=== PATIENT | male | born 1980 | race Caucasian/White ===

== ENCOUNTER 2018-02-14 17:49 | Emergency (ER) | END 2018-02-14 22:02 | disposition home or self-care (01) ==

== ENCOUNTER 2018-08-28 11:59 | Emergency (ER) | payer OTHER ==
[~2018-08-28] VITALS: Ht 167.6 cm; Wt 76.1 kg
[~2018-08-28 11:59] MED LIST: ASPI-817 PO; ATOR20TA38 PO; BEN50 PO; CEPH-443 PO; CLON0.2T5 PO; HYDR100T25 PO; ISOS30TA67 PO; LISI10TA2 PO; METO-407 PO; NIFE90TA11 PO; NIFEdipine (XL) 90 MG TAB PO SCH; POLY17PO6 PO; SEVE800T7 PO; ZOF8 PO
[2018-08-28 12:02] VITALS: Ht 167.6 cm; Wt 76.1 kg
[2018-08-28] MEDS ORDERED: ONDANSETRON 4 MG INJ IV STA ×2 (12:12→14:09)
[2018-08-28] MEDS ORDERED: morphine 4 MG/ML VIAL IV STA (12:12)
[2018-08-28] MEDS ORDERED: ASPIRIN 81 MG TAB PO ONE (12:30)
[2018-08-28] MEDS ORDERED: CALCIUM GLUCONATE 10% 1 GM in DEXTROSE 5% 100 ML IVPB ONE (12:30)
[2018-08-28] MEDS ORDERED: hydrALAzine 20 MG INJ IV ONE ×2 (12:30→14:30)
--- NOTE | 2018-08-28 12:31 | ERD ---
ER Documentation Chief Complaint Chief Complaint Chest pain xam radiates to back & bilat arms non-provoked; AP N/V/D X3days HPI This is a 38-year-old gentleman with a history of end-stage renal disease on dialysis, Wednesday and Wednesday with last dialysis Wednesday, 2 days ago. The patient presents with multiple complaints including chest pain, epigastric abdominal discomfort, elevated blood pressure and a report of high potassium yesterday. Patient denies any fevers chills or cough. The pain is pressure- like, 6 out of 10, nonradiating to his back. ROS All systems reviewed and are negative except as per history of present illness. Medications Home Meds Reported Medications Vitamin A (Vitamin A) Unknown Strength Capsule, 1 CAP PO DAILY, CAP 08/28/18 Sevelamer Carbonate* (Renvela*) 800 Mg Tablet, 0.8 GM PO WITH MEALS, TAB 08/28/18 Nifedipine* (Nifedipine ER*) 90 Mg Tablet.er, 90 MG PO TID, TAB 08/28/18 Lisinopril* (Lisinopril*) 10 Mg Tablet, 10 MG PO DAILY, #30 TAB 08/28/18 Isosorbide Mononitrate* (Isosorbide Mononitrate*) 30 Mg Tab.er.24h, 30 MG PO DAILY, TAB 08/28/18 Hydralazine Hcl* (Hydralazine Hcl*) 10 Mg Tablet, 10 MG PO Q8H, #60 TAB 08/28/18 Diphenhydramine Hcl* (Benadryl*) 50 Mg Cap, 50 MG PO BID PRN for ITCHING, CAP 08/28/18 Clonidine Hcl* (Clonidine Hcl*) 0.2 Mg Tablet, 0.2 MG PO Q8, TAB 08/28/18 Atorvastatin Calcium* (Atorvastatin Calcium*) 20 Mg Tablet, 20 MG PO QHS, #30 TAB 08/28/18 Aspirin* (Aspirin* EC) 81 Mg Tablet.dr, 81 MG PO DAILY, TAB 08/28/18 Discontinued Reported Medications Isosorbide Mononitrate* (Isosorbide Mononitrate*) 30 Mg Tab.er.24h, 30 MG PO DAILY, TAB 02/14/18 Hydralazine Hcl* (Hydralazine Hcl*) 100 Mg Tablet, 100 MG PO Q8, #90 TAB 02/14/18 Clonidine Hcl* (Clonidine Hcl*) 0.2 Mg Tablet, 0.2 MG PO Q8, TAB 02/14/18 Atorvastatin Calcium* (Atorvastatin Calcium*) 20 Mg Tablet, 20 MG PO QHS, #30 TAB 02/14/18 Sevelamer Carbonate* (Renvela*) 800 Mg Tablet, 0.8 GM PO WITH MEALS, TAB 02/14/18 Diphenhydramine Hcl* (Benadryl*) 50 Mg Cap, 50 MG PO ONCE PRN for ITCHING, CAP 02/14/18 Aspirin* (Aspirin* EC) 81 Mg Tablet.dr, 81 MG PO DAILY, TAB 02/14/18 Nifedipine* (Nifedipine ER*) 90 Mg Tablet.er, 90 MG PO DAILY, TAB 02/14/18 Metoprolol Tartrate* (Lopressor*) 100 Mg Tablet, 100 MG PO BID, #60 TAB 02/14/18 Lisinopril* (Lisinopril*) 10 Mg Tablet, 10 MG PO DAILY, #30 TAB 02/14/18 Discontinued Scripts Ondansetron Hcl* (Zofran*) 8 Mg Tab, 8 MG PO Q6H PRN for NAUSEA AND OR VOMITING, #20 TAB Prov:YASMIN WATERS MD 02/14/18 Polyethylene Glycol* (Miralax*) 17 Gm Powd.pack, 17 GM PO DAILY, #7 Prov:YASMIN WATERS MD 02/14/18 Cephalexin* (Keflex*) 500 Mg Capsule, 500 MG PO BID for 10 Days, CAP Prov:YASMIN WATERS MD 02/14/18 Allergies Allergies: Coded Allergies: Penicillins (Unverified Allergy, Unknown, 08/28/18) iodine (Unverified Allergy, Unknown, 08/28/18) PMhx/Soc History of Surgery: Yes (Right arm AV shunt, right chest permacath) Anesthesia Reaction: No Hx Neurological Disorder: No Hx Respiratory Disorders: No Hx Cardiac Disorders: Yes (HTN) Hx Psychiatric Problems: No Hx Miscellaneous Medical Probl: Yes (ESRD, Dialysis pt. ) Hx Alcohol Use: No Hx Substance Use: No (Denies) Hx Tobacco Use: No FmHx Family History: diabetes Physical Exam Vitals Vital Signs Date Temp Pulse Resp B/P (MAP) Pulse Ox O2 O2 Flow FiO2 Time Delivery Rate 08/28/18 88 18 202/126 98 Room Air 13:54 (151) 08/28/18 84 18 190/114 96 Room Air 13:03 (139) 08/28/18 97.8 83 20 211/122 98 12:02 (151) Physical Exam General: Well developed, well nourished, no acute distress Head: Normocephalic, atraumatic. Eyes: Pupils equally reactive, EOM intact ENT: Moist mucous membranes Neck: Supple, no lymphadenopathy Respiratory: Lungs clear bilaterally, no distress Cardiovascular: RRR, no murmurs, rubs, or gallops Abdominal: Soft, mild generalized abdominal tenderness without localization, negative Almeida sign, no tenderness to McBurney's point : Deferred MSK: No edema, no unilateral swelling, 5/5 strength Neurologic: Alert and oriented, moving all extremities, normal speech, no focal weakness, no cerebellar signs Skin: No rash, right chest tunneled Vas-Cath in good position Psych: Normal mood Result Diagram: 08/28/18 1235 08/28/18 1235 Results 24 hrs Laboratory Tests Test 08/28/18 12:35 White Blood Count 5.3 10^3/ul Red Blood Count 3.12 10^6/ul Hemoglobin 9.3 g/dl Hematocrit 28.8 % Mean Corpuscular Volume 92.3 fl Mean Corpuscular Hemoglobin 29.8 pg Mean Corpuscular Hemoglobin Concent 32.3 g/dl Red Cell Distribution Width 14.2 % Platelet Count 153 10^3/UL Mean Platelet Volume 9.2 fl Immature Granulocytes % 0.400 % Neutrophils % 80.6 % Lymphocytes % 6.3 % Monocytes % 9.5 % Eosinophils % 2.8 % Basophils % 0.4 % Nucleated Red Blood Cells % 0.0 /100WBC Immature Granulocytes # 0.020 10^3/ul Neutrophils # 4.3 10^3/ul Lymphocytes # 0.3 10^3/ul Monocytes # 0.5 10^3/ul Eosinophils # 0.2 10^3/ul Basophils # 0.0 10^3/ul Nucleated Red Blood Cells # 0.0 10^3/ul Prothrombin Time 11.6 Sec Prothrombin Time Ratio 0.9 INR International Normalized Ratio 0.84 Activated Partial Thromboplast Time 34.7 Sec Sodium Level 133 mmol/L Potassium Level 5.9 mmol/L Chloride Level 96 mmol/L Carbon Dioxide Level 22 mmol/L Anion Gap 15 Blood Urea Nitrogen 54 mg/dl Creatinine 13.85 mg/dl Est Glomerular Filtrat Rate mL/min 4 mL/min Glucose Level 130 mg/dl Calcium Level 10.6 mg/dl Total Bilirubin 0.0 mg/dl Direct Bilirubin 0.00 mg/dl Indirect Bilirubin 0.0 mg/dl Aspartate Amino Transf (AST/SGOT) 28 IU/L Alanine Aminotransferase (ALT/SGPT) 20 IU/L Alkaline Phosphatase 119 IU/L Troponin I < 0.012 ng/ml Total Protein 7.4 g/dl Albumin 4.5 g/dl Globulin 2.90 g/dl Albumin/Globulin Ratio 1.55 Lipase 160 U/L Current Medications Medications Dose Sig/Julia Start Time Status Last (Trade) Ordered Route PRN Stop Time Admin Dose Reason Admin Morphine 4 mg ONCE STAT 08/28/18 DC 08/28/18 Sulfate IV 12:12 12:46 (morphine) 08/28/18 12:15 Ondansetron 4 mg ONCE STAT 08/28/18 DC 08/28/18 HCl (Zofran IV 12:12 12:45 Inj) 08/28/18 12:15 Aspirin 162 mg ONCE ONCE 08/28/18 DC 08/28/18 (Aspirin) PO 12:30 12:44 08/28/18 12:31 Calcium 110 ml @ ONCE ONCE 08/28/18 DC 08/28/18 Gluconate 1 110 mls/hr IVPB 12:30 12:49 gm/Dextrose 08/28/18 13:29 Hydralazine 20 mg ONCE ONCE 08/28/18 DC 08/28/18 HCl IV 12:30 12:49 (Apresoline) 08/28/18 12:31 1 mg ONCE STAT 08/28/18 DC 08/28/18 Hydromorphone IV 13:41 13:53 HCl 08/28/18 13:42 (Dilaudid) Sodium 30 gm ONCE STAT 08/28/18 DC Polystyrene PO 13:53 Sulfonate 08/28/18 14:02 (Kayexalate) Sodium 50 ml ONCE STAT 08/28/18 DC Bicarbonate IV 13:53 (Na Bicarb 08/28/18 14:02 8.4% Syg) Ondansetron 4 mg ONCE STAT 08/28/18 DC HCl (Zofran IV 14:09 Inj) 08/28/18 14:10 Ondansetron 4 mg ER BRIDGE 08/28/18 HCl (Zofran PRN IV 14:30 Inj) NAUSEA/VOMITI 08/29/18 14:29 NG 650 mg ER BRIDGE 08/28/18 Acetaminophen PRN PO 14:30 (Tylenol .MILD PAIN 08/29/18 14:29 Tab) 1-3 OR TEMP 25 mg ONCE ONCE 08/28/18 Diphenhydrami IV 14:30 ne HCl 08/28/18 14:31 (Benadryl) Procedures/MDM EKG, MONITORS, & DIAGNOSTIC IMAGING: EKG: I reviewed and interpreted a 12-lead EKG. Rhythm: Normal sinus rhythm ST Changes: No contiguous ST segment elevations T waves: No contiguous T wave inversions, hyperacute or peaked T waves noted Impression: No evidence of acute cardiac ischemia Repeat EKG: EKG: I reviewed and interpreted a 12-lead EKG. Rhythm: Normal sinus rhythm ST Changes: No contiguous ST segment elevations T waves: No contiguous T wave inversions, hyperacute t waves vs peaked t waves Impression: No evidence of acute cardiac ischemia Chest x-ray: I reviewed and interpreted a 1 view of the chest Mediastinum: No enlargement Cardiac silhouette: No cardiomegaly Airspace: Clear lung webber bilaterally without evidence of pneumothorax Bones: No evidence of fracture CT abdomen and pelvis: No acute process per radiologist read LAB INTERPRETATION: * Negative troponin, elevated potassium MEDICAL DECISION MAKING: The patient's history, physical exam and clinical presentation is concerning for possible cardiogenic etiology and acute coronary syndrome. Additionally the patient's EKG is concerning for hyperkalemia. Empiric calcium will be provided. Patient does have elevated blood pressure with chest pain. The patient's chest pain is not migratory and I do not believe consistent with dissection. CT is not indicated at this time. Patient will benefit from blood pressure and pain control. Based on the patient's clinical exam and history and risk factors, I have a much lower clinical concern for pulmonary embolism, acute aortic dissection, pneumothorax, pneumonia, cardiac tamponade HEART Score: 4 or greater MACE Rate: 16.6% Shared Decision Making: We had a conversation regarding risk stratification, MACE rate, and the risks, benefits, alternatives of disposition planning options. Disposition planning: Patient requires admission ER COURSE: * Pain meds, aspirin, hydralazine provided. Empiric calcium provided. * Bicarb and Kayexalate provided. * Patient had some vomiting related to narcotic pain medication. * Patient is hemodynamically stable and benefits from hospitalization, dialysis * Patient's blood pressure was somewhat difficult to control and required several doses of hydralazine. Patient is extremely anxious which may be contributing. Anxiolysis provided. The patient requires dialysis for definitive hypertensive care CONSULTATION: admitting team will contact nephrology for dialysis DISPOSITION PLAN: Accepting care team and consultations: I discussed the current laboratory data, diagnostic imaging and emergency care provided. Admitting team: Dr. Gómez Admitting team indication: Insurance directed Departure Diagnosis: Primary Impression: Chest pain Chest pain type: unspecified Qualified Codes: R07.9 - Chest pain, unspecified Additional Impressions: Hyperkalemia End stage renal disease on dialysis Nausea and vomiting Vomiting type: unspecified Vomiting Intractability: non-intractable Qualified Codes: R11.2 - Nausea with vomiting, unspecified Hypertensive urgency Condition: Stable DAVI RENE MD Aug 28, 2018 12:31
[2018-08-28] MEDS ORDERED: ASPI-817 PO (12:41)
[2018-08-28] MEDS ORDERED: BEN50 PO (12:42)
[2018-08-28] MEDS ORDERED: ATOR20TA38 PO (12:42)
[2018-08-28] MEDS ORDERED: CLON0.2T5 PO (12:42)
[2018-08-28] MEDS ORDERED: HYDR-3670 PO (12:43)
[2018-08-28] MEDS ORDERED: ISOS30TA67 PO (12:43)
[2018-08-28] MEDS ORDERED: LISI10TA2 PO (12:44)
[2018-08-28] MEDS ORDERED: NIFE90TA11 PO (12:44)
[2018-08-28] MEDS ORDERED: SEVE800T7 PO (12:45)
[2018-08-28] MEDS ORDERED: VITA80005 PO (12:46)
[2018-08-28] MEDS ORDERED: HYDROmorphONE 0.5 MG/0.5 ML SYG IV STA (13:41)
[2018-08-28] MEDS ORDERED: NA BICARBONATE 8.4% 50 ML SYG IV STA (13:53)
[2018-08-28] MEDS ORDERED: NA POLYST SULFON 15 GM/60 ML BTL PO STA (13:53)
[2018-08-28] MEDS ORDERED: DIPHENHYDRAMINE 50 MG INJ IV ONE ×2 (14:30→16:00)
[2018-08-28] MEDS ORDERED: ACETAMINOPHEN 325 MG TAB PO PRN ×2 (14:30→19:30)
[2018-08-28] MEDS ORDERED: LORAZEPAM 2 MG INJ IV ONE ×2 (14:30→16:00)
[2018-08-28] MEDS ORDERED: ONDANSETRON 4 MG INJ IV PRN ×2 (14:30→19:30)
[2018-08-28] MEDS ORDERED: KETOROLAC 15 MG INJ IV STA (17:19)
[2018-08-28 17:39] VITALS: BP 196/121; PULSE 106; RESP 18
[2018-08-28] MEDS ORDERED: LABETALOL HCL 20MG INJ IV ONE ×2 (18:00→19:30)
--- NOTE | 2018-08-28 19:28 | HP ---
Date/Time of Note Date/Time of Note DATE: 08/28/18 TIME: 19:20 Assessment/Plan VTE Prophylaxis SCD applied (from Nsg): Yes Pharmacological prophylaxis: NA/contraindicated Pharm contraindication: renal impairment Lines/Catheters IV Catheter Type (from Nrsg): Saline Lock Assessment/Plan Hospital Course 1. Chest and abdominal pain Etiology unclear, CT abdomen shows no significant findings and chest x-ray shows pulmonary congestion CT chest with IV contrast to rule out dissection as patient reports significant pain and does have severely elevated blood pressure Questionable opiate seeking behavior also noted Pain control 2. Hypertensive emergency Labetalol IV as needed Continue home p.o. meds 3. 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 Castillo has been consulted 4. Anemia secondary to end-stage renal disease Monitor Prophylaxis: SCDs Result Diagram: 08/28/18 1235 08/28/18 1235 Results 24hrs Laboratory Tests Test 08/28/18 12:35 White Blood Count 5.3 Red Blood Count 3.12 L Hemoglobin 9.3 L Hematocrit 28.8 L Mean Corpuscular Volume 92.3 Mean Corpuscular Hemoglobin 29.8 Mean Corpuscular Hemoglobin Concent 32.3 Red Cell Distribution Width 14.2 Platelet Count 153 Mean Platelet Volume 9.2 Immature Granulocytes % 0.400 Neutrophils % 80.6 H Lymphocytes % 6.3 L Monocytes % 9.5 Eosinophils % 2.8 Basophils % 0.4 Nucleated Red Blood Cells % 0.0 Immature Granulocytes # 0.020 Neutrophils # 4.3 Lymphocytes # 0.3 L Monocytes # 0.5 Eosinophils # 0.2 Basophils # 0.0 Nucleated Red Blood Cells # 0.0 Prothrombin Time 11.6 L Prothrombin Time Ratio 0.9 INR International Normalized Ratio 0.84 Activated Partial Thromboplast Time 34.7 Sodium Level 133 L Potassium Level 5.9 H Chloride Level 96 L Carbon Dioxide Level 22 Anion Gap 15 H Blood Urea Nitrogen 54 H Creatinine 13.85 H Est Glomerular Filtrat Rate mL/min 4 L Glucose Level 130 Calcium Level 10.6 H Total Bilirubin 0.0 L Direct Bilirubin 0.00 Indirect Bilirubin 0.0 Aspartate Amino Transf (AST/SGOT) 28 Alanine Aminotransferase (ALT/SGPT) 20 Alkaline Phosphatase 119 Troponin I < 0.012 Total Protein 7.4 Albumin 4.5 Globulin 2.90 Albumin/Globulin Ratio 1.55 Lipase 160 HPI/ROS Admit Date/Time Admit Date/Time August 28, 2018 Hx of Present Illness Patient is a 38-year-old male with a history of end-stage renal disease reportedly secondary to hypertension on dialysis Wednesday, last dialysis was this past Wednesday. Patient presents with chest and abdominal discomfort, and the ER CT abdomen showed no acute findings, chest x-ray showed pulmonary edema and labs showed hyperkalemia with mild EKG changes. Patient does have opiate seeking behavior but blood pressure in the ER is severely elevated. Patient has no other complaints at this time. ROS Constitutional: no complaints, improved Eyes: no complaints ENT: no complaints Respiratory: no complaints Cardiovascular: chest pain Gastrointestinal: pain Genitourinary: no complaints Musculoskeletal: no complaints Skin: no complaints Neurologic: no complaints Endocrine: no complaints Lymphatic: no complaints Psychological: no complaints, nl mood/affect Immunologic: no complaints PMH/Family/Social Past Medical History Hypertension, end-stage renal disease on dialysis Wednesday Medications Current Medications Ondansetron HCl (Zofran Inj) 4 mg ER BRIDGE PRN IV NAUSEA/VOMITING; Start 08/28/18 at 14:30; Stop 08/29/18 at 14:29 Acetaminophen (Tylenol Tab) 650 mg ER BRIDGE PRN PO .MILD PAIN 1-3 OR TEMP; Start 08/28/18 at 14:30; Stop 08/29/18 at 14:29 Labetalol HCl (Labetalol) 20 mg ONCE ONCE IV ; Start 08/28/18 at 19:30; Stop 08/28/18 at 19:31 Coded Allergies: Penicillins (Unverified Allergy, Unknown, 08/28/18) iodine (Unverified Allergy, Unknown, 08/28/18) Past Surgical History Past Surgical Hx: no surgical history Family History Significant Family History: no pertinent family hx Social History Alcohol Use: rarely Smoking Status: Former smoker Drug Use: none Exam/Review of Systems Vital Signs Vitals Vital Signs Date Temp Pulse Resp B/P (MAP) Pulse Ox O2 O2 Flow FiO2 Time Delivery Rate 08/28/18 99.8 106 18 196/121 96 Room Air 17:39 (146) Exam Constitutional: alert, oriented Respiratory: clear to auscultation Cardiovascular: regular rate and rhythm Gastrointestinal: soft; No distended Musculoskeletal: nl extremities to inspection NENO DE LA O Aug 28, 2018 19:28
[2018-08-28] MEDS ORDERED: LISINOPRIL 20 MG TAB PO SCH (19:30)
[2018-08-28] MEDS ORDERED: ISOSORBIDE MONONITRATE(SR)30 MG TAB PO SCH (19:30)
[2018-08-28] MEDS ORDERED: HYDROCODONE/APAP (5/325) TAB PO PRN (19:30)
[2018-08-28] MEDS ORDERED: DOCUSATE SODIUM 100 MG CAP PO PRN (19:30)
[2018-08-28] MEDS ORDERED: morphine 2 MG INJ IV PRN (19:30)
[2018-08-28] MEDS ORDERED: ZOLPIDEM 5 MG TAB PO PRN (19:30)
[2018-08-28] MEDS ORDERED: LABETALOL HCL 20MG INJ IV PRN (19:30)
[2018-08-28] MEDS ORDERED: NACL 0.9% 3 ML SYG IV SCH (19:30)
[2018-08-28] MEDS ORDERED: DIPHENHYDRAMINE 50 MG CAP PO PRN (19:30)
[2018-08-28] MEDS ORDERED: ATORVASTATIN 20 MG TAB PO SCH (21:00)
[2018-08-29] MEDS ORDERED: SEVELAMER CARBONATE 0.8 GM PKT PO SCH (08:00)
== END 2018-08-28 19:39 | disposition left against medical advice (07) ==
LOC: E/R 11:59 → CANBEDREQ 20:11
DX: E87.5 Hyperkalemia (principal); I12.0 Hypertensive chronic kidney disease with stage 5 chronic kidney disease or end stage renal disease; N18.6 End stage renal disease; R11.2 Nausea with vomiting, unspecified; I16.0 Hypertensive urgency; Z79.82 Long term (current) use of aspirin; Z99.2 Dependence on renal dialysis
CPT/HCPCS: 36415; 71045; 74176; 80053; 83690; 84484; 85025; 85610; 85730; 93005; 96374; 96375; 96376; J0360; J0610; J1170; J1200; J1885; J2060; J2270; J2405; Z7502; Z7610